=== PATIENT | male | born 1965 | race Caucasian/White ===

== ENCOUNTER 2024-04-15 19:10 | Emergency (ER) | payer OTHER, SELFPAY ==
[2024-04-15 19:33] VITALS: BP 162/70; PULSE 86; TEMP 36.8; O2SAT 99; BMI 25.1
[2024-04-15 20:16] LABS: Influenza Virus A Antigen Negative; Influenza Virus B Antigen Negative; Internal Control Within Normal Limits; SARS-CoV-2 Ag NEGATIVE (NEGATIVE)
[2024-04-15 21:16] VITALS: BP 168/79; PULSE 91; TEMP 37.2; O2SAT 97
--- NOTE | 2024-04-15 21:17 | XR_ITS ---
The [address] [address] Patient Name: ABRAM MOSELEY MRN: [id number] date: 1965 Sex: M Assigned Patient Location: ER Current Patient Location: ER Accession/Order Number: [id number] Exam Date: 04/15/2024 21:20 Report Date: 04/15/2024 21:42 At the request of: KRIS GIL Procedure: XR chest 1V Exam: Radiographs: XR chest 1V Reason for exam: Cough, short of breath Comparison: None XR/XR chest 1V IMPRESSION: Old healed left clavicle fracture. Chest is otherwise unremarkable. Electronically authenticated by: JHON MARCOS Date: 04/15/2024 21:42
--- NOTE | 2024-04-15 21:17 | ED_ITS ---
HPI - URI/Sore Throat General Chief Complaint: Upper Respiratory Infection Stated Complaint: CHEST CONGESTION Time Seen by Provider: 04/15/24 21:14 Limitations: no limitations History of Present Illness HPI Narrative: 59-year-old male presents for 4-day history of cough and congestion. He is worried about pneumonia. He states he is not coughing up any phlegm. No hemoptysis or fever. Related Data Previous Rx's ?Medication ?Instructions ?Recorded benzonatate 100 mg capsule 100 mg PO TID PRN cough #20 caps 04/15/24 doxycycline hyclate 100 mg capsule 100 mg PO BID 10 days #20 caps 04/15/24 prednisone 10 mg tablet See Rx Instructions .Route 04/15/24 .COMPLEX #30 tabs Allergies Allergy/AdvReac Type Severity Reaction Status Date / Time sulfamethoxazole (From Allergy Mild hives Verified 04/15/24 19:32 Bactrim) trimethoprim (From Bactrim) Allergy Mild hives Verified 04/15/24 19:32 Review of Systems ROS Narrative A ten point review of systems is negative except as noted above. PFSH PFSH Social History Little interest or pleasure in doing things: not at all Feeling down, depressed, or hopeless: not at all Exam Narrative Exam Narrative: Nurses note and vital signs reviewed and patient is not hypoxic. General: The patient appears well and in no apparent distress. Patient is resting comfortably on cart. He coughs occasionally Skin: Warm, dry, no pallor noted. There is no rash noted. Head: Normocephalic, atraumatic Eye: Normal conjunctiva, no drainage Ears, Nose, Mouth, and Throat: oral mucosa is moist. Nares patent. Cardiovascular: Regular Rate and Rhythm Respiratory: Patient is in no distress, no accessory muscle use, lungs are clear to auscultation, no wheezing, rales or rhonchi Back: non-tender GI: Bilateral rhonchi throughout with good air movement Musculoskeletal: The patient has no evidence of calf tenderness, no pitting edema, symmetrical pulses noted bilaterally Neurological: A&O, normal speech Psychiatric: Cooperative Constitutional Vital Signs, click to edit/add: Last Vital Signs Temp 98.9 F 04/15/24 21:16 Pulse 84 04/15/24 21:37 Resp 18 04/15/24 21:37 BP 168/79 H 04/15/24 21:16 Pulse Ox 98 04/15/24 21:37 O2 Del Method Room Air 04/15/24 21:37 Course Vital Signs Vital signs: Vital Signs Temperature 98.3 F 04/15/24 19:33 Pulse Rate 86 04/15/24 19:33 Respiratory Rate 19 04/15/24 19:33 Blood Pressure 162/70 H 04/15/24 19:33 Pulse Oximetry 99 04/15/24 19:33 Oxygen Delivery Method Room Air 04/15/24 19:33 Temperature 98.9 F 04/15/24 21:16 Pulse Rate 84 04/15/24 21:37 Respiratory Rate 18 04/15/24 21:37 Blood Pressure 168/79 H 04/15/24 21:16 Pulse Oximetry 98 04/15/24 21:37 Oxygen Delivery Method Room Air 04/15/24 21:37 MDM - URI/Sore Throat MDM Narrative Medical decision making narrative: COVID and influenza test are negative and his chest x-ray shows no infiltrate. He was given IM Solu-Medrol and an aerosol treatment and started on doxycycline here. He was prescribed doxycycline, prednisone, and Tessalon. Treatment diagnosis and follow-up were discussed with the patient. Differential Diagnosis Differential diagnosis: Likely upper respiratory infection, viral infection, influenza and other (COVID, pneumonia) Lab Data Attestation: I reviewed the patient's lab results. Labs: Lab Results 04/15/24 Range/Units 19:50 Influenza Type A Ag Negative Influenza Type B Ag Negative SARS-CoV-2 Ag (CV2AG) Negative (NEGATIVE) Imaging Data Chest x-ray: Radiologist's impression: ITS Impressions Chest X-Ray 04/15/24 21:17 IMPRESSION: Old healed left clavicle fracture. Chest is otherwise unremarkable. Electronically authenticated by: JHON MARCOS Date: 04/15/2024 21:42 Discharge Plan Discharge Chief Complaint: Upper Respiratory Infection Clinical Impression: Upper respiratory infection Patient Disposition: Home, Self-Care Time of Disposition Decision: 22:13 Condition: Good Mode of Transportation: Private Vehicle Prescriptions / Home Meds: New prednisone 10 mg tablet See Rx Instructions .ROUTE .COMPLEX Qty: 30 0RF Rx Instructions: 4 by mouth daily for three days then 3 by mouth daily for three days then 2 by mouth daily for three days then 1 by mouth daily for three days doxycycline hyclate 100 mg capsule 100 mg PO BID 10 Days Qty: 20 0RF benzonatate 100 mg capsule 100 mg PO TID PRN (Reason: cough) Qty: 20 0RF Print Language: Citizen Of [place] Instructions: Upper Respiratory Infection (ED) Referrals: Physician,Non-Staff, MD [Primary Care Provider] - 1 week
[2024-04-15] MEDS: METHYLPREDNISOLONE SOD SUCC PF 125 MG/2 ML VIAL IM (21:33)
[2024-04-15] MEDS: ALBUTEROL SULFATE 2.5 MG/3 ML VIAL NEB IH (21:36)
[2024-04-15 21:37] VITALS: PULSE 84; O2SAT 98
[2024-04-15] MEDS: DOXYCYCLINE MONOHYDRATE 100 MG CAPSULE PO (22:19)
== END 2024-04-15 22:24 | disposition home or self-care (01) ==
PROVIDERS: Emergency Provider Emergency Medicine
DX: J06.9 Acute upper respiratory infection, unspecified (principal)
CPT/HCPCS: 71045; 87804; 87811; 94640; 96372; 99285; J2919